=== PATIENT | female | born 1995 | race Caucasian/White ===

== ENCOUNTER 2017-02-27 16:26 | Inpatient (IN) | payer OTHER ==
[2017-02-27 17:39] LABS: ADD MAN DIFF? NO
[2017-02-27 17:42] LABS: BASOPHILS % 0.5 % (0.0-2.0); EOSINOPHILS # 0.1 10^3/ul (0.0-0.5); EOSINOPHILS % 0.9 % (0.0-7.0); HEMATOCRIT 38.3 % (37.0-47.0); HEMOGLOBIN 12.9 g/dl (12.0-16.0); LYMPHOCYTES # 2.2 10^3/ul (0.8-2.9); LYMPHOCYTES % 24.8 % (15.0-51.0); MEAN CORPUSCULAR HEMOGLOBIN 28.4 pg (29.0-33.0); MEAN CORPUSCULAR HGB CONC 33.7 g/dl (32.0-37.0); MEAN CORPUSCULAR VOLUME 84.2 fl (82.0-101.0); MEAN PLATELET VOLUME 9.9 fl (7.4-10.4); MONOCYTE # 0.5 10^3/ul (0.3-0.9); MONOCYTES % 5.5 % (0.0-11.0); NEUTROPHIL # 5.9 10^3/ul (1.6-7.5); NEUTROPHILS % 67.4 % (39.0-77.0); NUCLEATED RED BLOOD CELLS% 0.2 /100WBC (0.0-0.0); PLATELET COUNT 264 10^3/UL (140-415); RED BLOOD COUNT 4.55 10^6/ul (4.20-5.40); RED CELL DISTRIBUTION WIDTH 16.9 % (11.5-14.5)
[2017-02-27 17:42] LABS: WHITE BLOOD COUNT 8.8 10^3/ul (4.8-10.8)
[2017-02-27 17:55] LABS: INR 0.87; PROTIME 11.9 Sec (11.9-14.9); PT RATIO 0.9
[2017-02-27 17:56] LABS: PARTIAL THROMBOPLASTIN TIME 27.4 Sec (25.0-35.0)
[2017-02-27 18:00] LABS: ALANINE AMINOTRANSFERASE 28 IU/L (13-69); ALBUMIN 3.3 g/dl (3.3-4.9); ALKALINE PHOSPHATASE 172 IU/L (42-121); ANION GAP 13 (8-16); ASPARTATE AMINO TRANSFERASE 26 IU/L (15-46); BLOOD UREA NITROGEN 12 mg/dl (7-20); CALCIUM 8.7 mg/dl (8.4-10.2); CARBON DIOXIDE 23 mmol/L (21-31); CHLORIDE 106 mmol/L (97-110); CREATININE 0.72 mg/dl (0.44-1.00); GLUCOSE 98 mg/dl (70-220); SODIUM 138 mmol/L (135-144); TOTAL PROTEIN 6.6 g/dl (6.1-8.1); URIC ACID 6.6 mg/dl (3.1-7.9)
[2017-02-27 18:27] LABS: ADD UMIC YES; UR ASCORBIC ACID NEGATIVE (NEGATIVE); UR BACTERIA MANY /HPF (NONE SEEN); UR BILIRUBIN (Dip) NEGATIVE (NEGATIVE); UR BLOOD (Dip) NEGATIVE (NEGATIVE); UR CLARITY CLOUDY (CLEAR); UR COLOR YELLOW (YELLOW); UR GLUCOSE (Dip) NEGATIVE (NEGATIVE); UR KETONES (Dip) NEGATIVE (NEGATIVE); UR LEUKOCYTE ESTERASE (Dip) 1+ Leu/ul (NEGATIVE); UR NITRITE (Dip) NEGATIVE (NEGATIVE); UR RBC 0 /HPF (0-5); UR SPECIFIC GRAVITY (Dip) 1.017 (1.003-1.030); UR SQUAMOUS EPITHELIAL CELL MANY /HPF (FEW); UR TOTAL PROTEIN (Dip) 1+ mg/dl (NEGATIVE); UR UROBILINOGEN (Dip) NEGATIVE (NEGATIVE); UR WBC 11 /HPF (0-5)
[2017-02-27] MEDS ORDERED: LIDOCAINE 1% (MPF) 30 ML INJ INJ (19:00)
[2017-02-27] MEDS ORDERED: BUTORPHANOL 2 MG INJ IV (19:00)
[2017-02-27] MEDS ORDERED: METHYLERGONOVINE 0.2 MG INJ IM (19:00)
[2017-02-27] MEDS ORDERED: CARBOPROST 250 MCG INJ IM (19:00)
[2017-02-27] MEDS ORDERED: OXYTOCIN 30 UNITS/LR 500 ML IV (19:00)
[2017-02-27] MEDS ORDERED: MISOPROSTOL 200 MCG TAB PR (19:00)
[2017-02-27 19:14] LABS: UR MUCUS MANY /HPF (NONE SEEN)
[2017-02-27 19:33] LABS: HEPATITIS B SURFACE ANTIGEN NEGATIVE (NEGATIVE)
[2017-02-27] MEDS: LACTATED RINGER'S 1,000 ML IV (19:37)
[2017-02-27] MEDS: OXYTOCIN 30 UNITS/LR 500 ML IV (20:32)
[2017-02-27] MEDS ORDERED: LACTATED RINGER'S 1,000 ML IV (20:33)
[2017-02-27] MEDS ORDERED: IBUPROFEN 600 MG TAB PO (21:00)
[2017-02-27] MEDS ORDERED: OXYCODONE/ACETAMINOPHEN (5/325) TAB PO (21:00)
[2017-02-28] MEDS ORDERED: FENTAnyl 2MCG/ML-ROPIV 0.2% 100 ML (03:08)
[2017-02-28] MEDS: LACTATED RINGER'S 1,000 ML IV ×2 (03:08→08:15)
[2017-02-28] MEDS ORDERED: ONDANSETRON 4 MG INJ (06:27)
[2017-02-28] MEDS: ONDANSETRON 4 MG INJ IV ×2 (06:32→14:16)
[2017-02-28] MEDS ORDERED: MINERAL OIL LIGHT 10 ML VIAL (08:22)
[2017-02-28] MEDS ORDERED: DIPHENHYDRAMINE 50 MG INJ IV (10:00)
[2017-02-28] MEDS ORDERED: ONDANSETRON 4 MG INJ IV (10:00)
[2017-02-28] MEDS ORDERED: NALOXONE (0.4 MG/ML) INJ IV (10:00)
[2017-02-28] MEDS: FENTAnyl 2MCG/ML-ROPIV 0.2% 100 ML BAG EPI (10:36)
[2017-02-28] MEDS: OXYTOCIN 30 UNITS/LR 500 ML IV ×2 (13:10→13:14)
[2017-02-28] MEDS: MINERAL OIL LIGHT 10 ML VIAL TOP (13:15)
[2017-02-28] MEDS ORDERED: HYDROCODONE/APAP (5/325) TAB PO ×2 (15:30)
[2017-02-28] MEDS ORDERED: ZOLPIDEM 5 MG TAB PO (15:30)
[2017-02-28] MEDS ORDERED: MISOPROSTOL 200 MCG TAB PR (15:30)
[2017-02-28] MEDS ORDERED: CARBOPROST 250 MCG INJ IM (15:30)
[2017-02-28] MEDS ORDERED: METHYLERGONOVINE 0.2 MG INJ IM (15:30)
[2017-02-28] MEDS ORDERED: DIBUCAINE 1% 30 GM OINT PR (15:30)
[2017-02-28] MEDS ORDERED: OXYTOCIN 30 UNITS/LR 500 ML IV (15:30)
[2017-02-28] MEDS: LACTATED RINGER'S 1,000 ML IV* (16:52)
[2017-02-28] MEDS: IBUPROFEN 600 MG TAB PO (17:44)
[2017-02-28] MEDS: CEPHALEXIN 500 MG CAP PO (17:44)
[2017-02-28 21:21] LABS: RAPID PLASMA REAGIN NONREACTIVE (NR)
[2017-02-28] MEDS: SENNA/DOCUSATE NA (8.6MG/50MG) TAB PO (21:48)
[2017-02-28] MEDS: MAGNESIUM HYDROXIDE 30ML CUP PO (21:48)
[2017-03-01] MEDS: IBUPROFEN 600 MG TAB PO ×4 (00:39→18:04)
[2017-03-01] MEDS: CEPHALEXIN 500 MG CAP PO ×4 (00:39→18:05)
[2017-03-01] MEDS: MAGNESIUM HYDROXIDE 30ML CUP PO ×2 (08:37→21:21)
[2017-03-01] MEDS: SENNA/DOCUSATE NA (8.6MG/50MG) TAB PO ×2 (08:37→21:20)
[2017-03-01 10:14] LABS: ADD MAN DIFF? NO
[2017-03-01 10:21] LABS: BASOPHIL # 0.1 10^3/ul (0.0-0.1); BASOPHILS % 0.5 % (0.0-2.0); EOSINOPHILS # 0.1 10^3/ul (0.0-0.5); EOSINOPHILS % 0.6 % (0.0-7.0); HEMATOCRIT 34.3 % (37.0-47.0); HEMOGLOBIN 11.5 g/dl (12.0-16.0); LYMPHOCYTES # 3.9 10^3/ul (0.8-2.9); LYMPHOCYTES % 35.3 % (15.0-51.0); MEAN CORPUSCULAR HEMOGLOBIN 28.3 pg (29.0-33.0); MEAN CORPUSCULAR HGB CONC 33.5 g/dl (32.0-37.0); MEAN CORPUSCULAR VOLUME 84.3 fl (82.0-101.0); MEAN PLATELET VOLUME 9.8 fl (7.4-10.4); MONOCYTE # 0.4 10^3/ul (0.3-0.9); MONOCYTES % 3.5 % (0.0-11.0); NEUTROPHIL # 6.5 10^3/ul (1.6-7.5); NEUTROPHILS % 59.6 % (39.0-77.0); PLATELET COUNT 243 10^3/UL (140-415); RED BLOOD COUNT 4.07 10^6/ul (4.20-5.40); RED CELL DISTRIBUTION WIDTH 17.1 % (11.5-14.5)
[2017-03-01 10:21] LABS: WHITE BLOOD COUNT 10.9 10^3/ul (4.8-10.8)
[2017-03-01] MEDS: LANOLIN 7 GM TUBE TOP (12:12)
[2017-03-01] MEDS: BENZOCAINE 20% 56 ML SPRAY TOP (12:14)
[2017-03-01] MEDS: WITCH HAZEL/GLYCERIN PAD PR (12:15)
[2017-03-02] MEDS: CEPHALEXIN 500 MG CAP PO ×3 (00:08→11:59)
[2017-03-02] MEDS: IBUPROFEN 600 MG TAB PO ×3 (00:08→11:59)
[2017-03-02] MEDS: DIPHTH/TET/ACEL PERTUSS (ADULT) 0.5 ML VIAL IM* (09:00)
[2017-03-02] MEDS: VARICELLA VACCINE LIVE/PF 1,350 UNIT/0.5 ML ML SC* (09:00)
[2017-03-02] MEDS: MEASLES,MUMPS,RUBELLA VACCINE INJ SC* (09:00)
[2017-03-02] MEDS: MAGNESIUM HYDROXIDE 30ML CUP PO (09:58)
[2017-03-02] MEDS: SENNA/DOCUSATE NA (8.6MG/50MG) TAB PO (09:58)
== END 2017-03-02 14:58 | disposition home or self-care (01) | DRG 774 ==
LOC: OBT 16:26 → L-D 16:29 → PP1 02-28 15:07 → OBT 18:37 → L-D 18:35
PROC: 10D07Z6 Extraction of Products of Conception, Vacuum, Via Natural or Artificial Opening (ICD-10-PCS; principal; 2017-02-28)
PROC: 3E0P7VZ Introduction of Hormone into Female Reproductive, Via Natural or Artificial Opening (ICD-10-PCS; 2017-02-28)
DX: O14.93 Unspecified pre-eclampsia, third trimester (principal); O76 Abnormality in fetal heart rate and rhythm complicating labor and delivery; Z37.0 Single live birth; Z3A.38 38 weeks gestation of pregnancy
CPT/HCPCS: 36415; 62319; 76815; 76818; 80053; 81001; 84560; 85025; 85610; 85730; 86592; 86900; 86901; 87340; 90715; 90716; 99464